=== PATIENT | female | born 1960 | race Caucasian/White ===

== ENCOUNTER → 2024-10-28 | Emergency (ER) | payer OTHER ==
[~2024-10-28] VITALS: Ht 172.7 cm; Wt 61.8 kg
[~2024-10-28] MED LIST: ACETAMINOPHEN 325 MG TABLET ONE; POTASSIUM CHLORIDE 20 MEQ TAB.PRT.SR PO ONE; TDAP [DIPH/PERTUSSIS/TET] 0.5 ML VIAL IM ONE
[2024-10-28 13:36] VITALS: TEMP 98
[2024-10-28 13:41] LABS: PLATELET COUNT (AUTO) 185 K/uL (150-450); RED BLOOD CELL COUNT(AUTO) 4.29 MIL/uL (4.0-5.2); RED CELL DISTRIBUTION WIDTH 14.6 % (11.5-15.0); WHITE BLOOD COUNT (AUTO) 6.4 K/uL (4.3-11.0)
[2024-10-28 13:52] LABS: CALCIUM, SERUM 8.9 mg/dL (8.5-10.1); CREATININE 2.2 mg/dL (0.6-1.3); SODIUM SERUM 133.0 mmol/L (136-145); UREA NITROGEN, BLOOD 36.0 mg/dL (7-18)
[2024-10-28] MEDS: IV NS 0.9% 1,000 ML BAG IV ONE (14:15)
[2024-10-28 14:19] LABS: ASPARTATE AMINOTRANSFERASE 44 U/L (15-37); TOTAL PROTEIN, SERUM 7.4 g/dL (6.4-8.2)
[2024-10-28] MEDS: ACETAMINOPHEN 325 MG TABLET PO ONE (14:23)
[2024-10-28] MEDS: TDAP [DIPH/PERTUSSIS/TET] 0.5 ML VIAL IM ONE (15:10)
[2024-10-28] MEDS: POTASSIUM CHLORIDE 20 MEQ TAB.PRT.SR PO ONE (16:55)
[2024-10-28 18:23] VITALS: BP 116/75; O2SAT 99
== END | disposition home or self-care (01) ==
LOC: ER 13:20
DX: S01.01XA Laceration without foreign body of scalp, initial encounter (principal); R55 Syncope and collapse; R42 Dizziness and giddiness; R07.81 Pleurodynia; E87.6 Hypokalemia; Z88.0 Allergy status to penicillin; Z86.79 Personal history of other diseases of the circulatory system; W18.39XA Other fall on same level, initial encounter; Y93.9 Activity, unspecified; Y92.89 Other specified places as the place of occurrence of the external cause; Y99.8 Other external cause status
CPT/HCPCS: 12001; 36415; 70450; 71045; 71100; 80048; 80076; 84484; 85025; 90471; 90715; 93005; 96360; 99285; A6403; J7030